=== PATIENT | female | born 1955 | race Caucasian/White ===

== ENCOUNTER 2018-03-06 06:45 | Day surgery (SDC) | payer BC ==
[2018-03-05 15:45] LABS: BASOPHILS 0.7 % (0-2); EOSINOPHILS 2.8 % (0-7); HEMATOCRIT 43.7 % (36.0-48.0); HEMOGLOBIN 14.4 g/dL (12-16); IMMATURE GRANULOCYTES 0.2 % (0-5); LYMPHOCYTES 29.3 % (15-50); MCH 27.9 pg (26.0-34.0); MCV 84.7 fL (80.0-100.0); MEAN PLATELET VOLUME 11.2 fL (7.4-10.4); MONOCYTES 8.2 % (2-11); NEUTROPHILS 58.8 % (40-80); PLATELET COUNT 260 10x3/uL (130-400); RBC 5.16 10x6/uL (4.00-5.40); RDW 14.2 % (11.5-14.5); WBC 9.5 10x3/uL (4.8-10.8)
[~2018-03-06] VITALS: Ht 165.1 cm; Wt 81.6 kg
--- NOTE | ~2018-03-06 | OP ---
PATIENT NAME: ARLET CIFUENTES MEDICAL RECORD: [id number] :53 LOCATION:[facility] ADMISSION DATE: SURGEON: DAMON GAMA DPM DATE OF OPERATION: 03/06/2018 PREOPERATIVE DIAGNOSIS: Enlarged bone right fourth and fifth digits and fourth metatarsal head. POSTOPERATIVE DIAGNOSIS: Enlarged bone right fourth and fifth digits and fourth metatarsal head. PROCEDURES: 1. Right fifth PIPJ arthroplasty. 2. Right fourth partial met head resection. 3. Right fourth proximal phalanx partial removal. ANESTHESIA: General with local infiltrate utilizing lidocaine and Marcaine plain around the fourth and fifth ray of the right foot, 10 cc total. HEMOSTASIS: Right ankle tourniquet at 250 mmHg. PREOPERATIVE DETAILS: The patient was taken to the OR and placed on the operating table in a supine position. This was followed by induction of general anesthesia and infiltration of local anesthetic. The right extremity was then prepped and draped in usual aseptic technique followed by exsanguination and inflation of tourniquet. PROCEDURE #1: PIPJ arthroplasty, right foot. A 1.5 cm linear incision was made over the dorsal aspect of the right fifth digit PIPJ. The incision was deepened down through subcutaneous tissue to the extensor longus tendon, which was transected in a transverse fashion. The head of the proximal phalanx was then delivered. A sagittal saw was used to resect the head of the proximal phalanx. The wound was flushed. The extensor tendon was then repaired with 4-0 Rapide and the skin was closed with 4-0 Rapide in a subcuticular technique followed by Dermabond. PROCEDURE #2: Right fourth partial met head resection. A 15-blade was used to create a 3 cm linear incision overlying the dorsal aspect of the right fourth metatarsal extending to the middle of the proximal phalanx of the fourth digit. The incision was deepened down through subcutaneous tissue to the extensor harrison apparatus. A 15-blade was used to create an incision longitudinally between the extensor longus and extensor brevis tendon, exposing the head of the first metatarsal and the base of the proximal phalanx. A sagittal saw was then used to remove the lateral 2-3 mm of the fourth metatarsal head. PROCEDURE #3: Right fourth proximal phalanx partial removal. Utilizing the incision as described in #2, a sagittal saw was used to resect approximately 3 mm of the lateral base of the fourth digit proximal phalanx. The wound was flushed. A 2-0 Vicryl was then used to repair the extensor harrison apparatus utilizing horizontal mattress technique 4-0 Rapide was then used to close the subcutaneous tissue and 4-0 Rapide was used to close the skin in a subcuticular technique followed by Dermabond. Adaptic, 4 x 4 and Conform were used to dress the wounds followed by Coban. Tourniquet was deflated. POSTOPERATIVE DETAILS: The patient tolerated the procedure well and left the OR OPERATIVE REPORT [id number] ARLET CIFUENTES with vital signs stable and vascular status at preoperative levels. The patient was transported to the recovery per anesthesia in stable condition. TRANSINT:[id number] Voice Confirmation ID: [id number] DOCUMENT ID: [id number] DAMON GAMA DPM at 0833 CC: [id number] DICTATION DATE: 03/06/18 1014 TRUST ADMINISTRATOR: 03/06/18 1102 [facility] 03/06/18 [id number] [place] [address]
[2018-03-06 07:52] VITALS: BP 96/63; Ht 165.1 cm; Wt 81.6 kg
== END 2018-03-06 11:45 | disposition home or self-care (01) ==
LOC: D.OPS 06:45 → D.PAN 09:00 → D.OPS 09:00
PROVIDERS: Anesthesiology
DX: M89.371 Hypertrophy of bone, right ankle and foot (principal); Z01.812 Encounter for preprocedural laboratory examination